=== PATIENT | male | born 1955 | race Caucasian/White ===

== ENCOUNTER 2019-02-10 08:26 | Emergency (ER) | payer OTHER ==
[~2019-02-10] VITALS: Ht 170.2 cm; Wt 75.0 kg
[2019-02-10 08:29] VITALS: Ht 170.2 cm; Wt 75.0 kg
[2019-02-10] MEDS ORDERED: SOD CHLORIDE 0.9% 500 ML IV STA (08:44)
[2019-02-10] MEDS ORDERED: morphine 4 MG/ML VIAL IV STA (08:44)
[2019-02-10] MEDS ORDERED: ONDANSETRON 4 MG INJ IV STA (08:44)
--- NOTE | 2019-02-10 08:56 | ERD ---
ER Documentation Chief Complaint Chief Complaint s/p right inguinal hernia repair yesterday, has ap today HPI 63-year-old male postop day 2 from a right inguinal hernia repair that was done laparoscopically at outside hospital. On postop day 1 patient was doing fine taking [place] for pain. Patient woke up this morning with severe right upper quadrant abdominal pain did take his [place] this morning which did not alleviate the pain. Has not had a bowel movement since the surgery but does have flatus. No dysuria, no nausea or vomiting, no fever, no cough. ROS All systems reviewed and are negative except as per history of present illness. PMhx/Soc Medical and Surgical Hx: pt denies Medical Hx History of Surgery: Yes (Inguinal hernia repair) Hx Cardiac Disorders: No Hx Alcohol Use: No Hx Substance Use: No Hx Tobacco Use: No Smoking Status: Never smoker FmHx Family History: No diabetes Physical Exam Vitals Vital Signs Date Temp Pulse Resp B/P (MAP) Pulse Ox O2 O2 Flow FiO2 Time Delivery Rate 02/10/19 98.0 67 18 156/77 99 08:29 (103) Physical Exam Const: No acute distress Head: Atraumatic Eyes: Normal Conjunctiva ENT: Normal External Ears, Nose and Mouth. Neck: Full range of motion. No meningismus. Resp: Clear to auscultation bilaterally Cardio: Regular rate and rhythm, no murmurs Abd: Soft, mild right upper quadrant tender, laparoscopic incisions well- appearing clean dry and intact. No pain to the right inguinal region on palpation non distended. Normal bowel sounds Skin: No petechiae or rashes Back: No midline or flank tenderness Ext: No cyanosis, or edema Neur: Awake and alert Psych: Normal Mood and Affect Result Diagram: 02/10/19 0850 02/10/19 0850 Results 24 hrs Laboratory Tests Test 02/10/19 08:50 White Blood Count 10.3 10^3/ul Red Blood Count 4.81 10^6/ul Hemoglobin 15.2 g/dl Hematocrit 46.7 % Mean Corpuscular Volume 97.1 fl Mean Corpuscular Hemoglobin 31.6 pg Mean Corpuscular Hemoglobin Concent 32.5 g/dl Red Cell Distribution Width 12.4 % Platelet Count 178 10^3/UL Mean Platelet Volume 10.1 fl Immature Granulocytes % 0.300 % Neutrophils % 65.6 % Lymphocytes % 25.6 % Monocytes % 7.4 % Eosinophils % 0.7 % Basophils % 0.4 % Nucleated Red Blood Cells % 0.0 /100WBC Immature Granulocytes # 0.030 10^3/ul Neutrophils # 6.8 10^3/ul Lymphocytes # 2.6 10^3/ul Monocytes # 0.8 10^3/ul Eosinophils # 0.1 10^3/ul Basophils # 0.0 10^3/ul Nucleated Red Blood Cells # 0.0 10^3/ul Sodium Level 137 mmol/L Potassium Level 4.3 mmol/L Chloride Level 100 mmol/L Carbon Dioxide Level 32 mmol/L Anion Gap 5 Blood Urea Nitrogen 18 mg/dl Creatinine 1.13 mg/dl Est Glomerular Filtrat Rate mL/min > 60 mL/min Glucose Level 96 mg/dl Calcium Level 9.6 mg/dl Total Bilirubin 0.9 mg/dl Direct Bilirubin 0.00 mg/dl Indirect Bilirubin 0.9 mg/dl Aspartate Amino Transf (AST/SGOT) 23 IU/L Alanine Aminotransferase (ALT/SGPT) 21 IU/L Alkaline Phosphatase 85 IU/L Total Protein 7.0 g/dl Albumin 3.9 g/dl Globulin 3.10 g/dl Albumin/Globulin Ratio 1.25 Lipase 31 U/L Current Medications Medications Dose Sig/Aroldo Start Time Status Last (Trade) Ordered Route PRN Stop Time Admin Dose Reason Admin Sodium 500 ml @ Q1H STAT 02/10/19 DC 02/10/19 Chloride 500 mls/hr IV 08:44 09:11 02/10/19 09:43 Morphine 4 mg ONCE STAT 02/10/19 DC 02/10/19 Sulfate IV 08:44 09:11 (morphine) 02/10/19 08:45 Ondansetron 4 mg ONCE STAT 02/10/19 DC 02/10/19 HCl (Zofran IV 08:44 09:11 Inj) 02/10/19 08:45 Iohexol 150 ml STK-MED 02/10/19 DC 02/10/19 (Omnipaque ONCE .ROUTE 09:36 10:32 300mg/ ml) 02/10/19 09:37 Sodium 100 ml @ ud STK-MED 02/10/19 DC 02/10/19 Chloride ONCE .ROUTE 09:36 10:32 02/10/19 09:37 Procedures/MDM Patient presents with abdominal pain, , has flatus , afebrile Patient is well appearing. Non acute abdominal exam. Low suspicion for AAA given no palpable mass . Low suspicion for mesenteric ischemia given pain not out of pro portion to exam, and no major risk factors . Given exam and history, low suspicion for acute abdominal process, such as acute cholecystitis, pancreatitis, perforated viscus, atypical appendicitis or torsion. Bloodwork without evidence of severe metabolic derangement or infection. CAT scan without any evidence of acute infection likely all postsurgical changes. Will have patient follow with his surgeon this week. Patient remains PO tolerant. Serial abdominal exam without increase in abdominal pain. Departure Diagnosis: Primary Impression: Abdominal pain Abdominal location: generalized Qualified Codes: R10.84 - Generalized abdominal pain Condition: Stable JOURDAN HOLMAN MD Feb 10, 2019 08:56
[2019-02-10] MEDS ORDERED: IOHEXOL 300MG/ML 150 ML BTL ONE (09:36)
[2019-02-10] MEDS ORDERED: SOD CHLORIDE 0.9% 100 ML ONE (09:36)
[2019-02-10 10:50] VITALS: BP 140/76; PULSE 78; RESP 18
== END 2019-02-10 10:55 | disposition home or self-care (01) ==
LOC: E/R 08:26
DX: R10.84 Generalized abdominal pain (principal); R40.2142 Coma scale, eyes open, spontaneous, at arrival to emergency department; R40.2252 Coma scale, best verbal response, oriented, at arrival to emergency department; R40.2362 Coma scale, best motor response, obeys commands, at arrival to emergency department
CPT/HCPCS: 36415; 74177; 76705; 80053; 83690; 85025; 96361; 96374; 96375; J2270; J2405; J7040; Q9967; Z7502; Z7610